=== PATIENT | male | born 1970 | race Caucasian/White ===

== ENCOUNTER 2021-06-27 18:05 | Emergency (ER) | payer BC ==
[~2021-06-27] VITALS: Ht 162.6 cm; Wt 68.0 kg
--- NOTE | 2021-06-27 18:12 | NUR ---
Patient seen by
--- NOTE | 2021-06-27 18:42 | NUR ---
at bedside to examine pt.
[2021-06-27] MEDS: ONDANSETRON ODT 4 MG TAB.RAPDIS SL ONE (18:50)
[2021-06-27] MEDS: HYDROCODONE/APAP 10-325 MG TABLET PO ONE (18:50)
--- NOTE | 2021-06-27 18:52 | NUR ---
DCD instructions given to pt. who verbalized undertanding. Pt. left room Ambulatory steady gait. AAOx4. pain 2/ post medicated.
[2021-06-27] MEDS ORDERED: HYDROCODONE/APAP 10-325 MG TABLET ONE (18:57)
[2021-06-27] MEDS ORDERED: ONDANSETRON ODT 4 MG TAB.RAPDIS ONE (18:57)
--- NOTE | 2021-06-27 19:01 | NUR ---
patient provided with dictation copy of shoulder Xray and CD imaging as ordered.
== END 2021-06-27 19:07 | disposition home or self-care (01) ==
LOC: ER 18:10
DX: G89.29 Other chronic pain (principal); M25.512 Pain in left shoulder; M54.2 Cervicalgia; S49.92XS Unspecified injury of left shoulder and upper arm, sequela; V49.9XXS Car occupant (driver) (passenger) injured in unspecified traffic accident, sequela
CPT/HCPCS: 73030; A4663; Q0162